=== PATIENT | male | born 2000 | race Caucasian/White ===

== ENCOUNTER 2021-02-06 11:03 | Emergency (ER) | payer OTHER, SELFPAY ==
[2021-02-06 11:05] VITALS: BP 132/55; PULSE 70; RESP 20; TEMP 36.9; O2SAT 99; BMI 34.5
--- NOTE | 2021-02-06 12:15 | HMH.EDUTC ---
[facility] [place] Clinical Impression: Allergic rhinitis Qualifiers: Allergic rhinitis trigger: unspecified Allergic rhinitis seasonality: unspecified Qualified Code(s): J30.9 - Allergic rhinitis, unspecified Disposition: Home, Self-Care Condition on Discharge: Good Instructions: Allergic Rhinitis, DI for Allergic Rhinitis Additional Instructions: Continue taking your allergy medication Make sure that you are drinking plenty of water Use flonase as prescribed Return if needed Straight to ER if any life threatening symptoms Prescriptions: guaiFENesin [Mucinex 600mg tablet] 1 - 2 tab PO Q12HP PRN #20 tab.er.12h PRN Reason: Congestion Transmission Status: Pending to [facility] # Fluticasone Propionate [Flonase 50mcg nasal spray 16gm] 1 - 2 spr NS DAILY #1 bottle Transmission Status: Pending to [facility] # Referrals: Lorena Gu MD [Primary Care Provider] - As needed Forms: Work/School Release Time of Disposition: 12:21 Medical Decision Making - Luis Fernando Inquiry Pt receiving controlled substance: No Luis Fernando was queried for this patient: No Vital Signs: 02/06/21 11:05 Temperature 98.5 F Temperature Source Temporal Artery Scan Pulse Rate [Left Brachial] 70 Respiratory Rate 20 Blood Pressure [Left Arm] 132/55 L Blood Pressure Mean [Left Arm] 80 Blood Pressure Source [Left Arm] Automatic Cuff Blood Pressure Position [Left Arm] Sitting 02 Sat by Pulse Oximetry 99 Oxygen Delivery Method Room Air [facility] [place] - General Stated complaint: allergies Time Seen by Provider: 02/06/21 12:15 Mode of Arrival: Ambulatory Source of Information: Patient Limitations: No Limitations Description of Symptoms (Recalled from Triage Doc. by RN): PATIENT C/O CONGESTION, RUNNY NOSE AND ALLERGY SYMPTOMS. RECENTLY HAS BEEN WORKING IN [employer], SYMPTOMS STARTED AFTER HEENT Symptoms (Recalled from RN notes): Yes Resp Symptoms (Recalled from RN notes): No Skin Symptoms (Recalled from RN notes): No MS Symptoms (Recalled from RN notes): No Functional Status (Recalled from RN notes): WNL - History of Present Illness Provider Complaint: Patient states that he has bad allergies States that he has been working in the [employer] State that his allergies has been acting up and has his nose congested States that he wasnt sure what to do to help open up his congestion Denies fever, denies chills denies exposure to COVID - Related Data Previous Rx's Medication Instructions Recorded Fluticasone Propionate [Flonase 1 - 2 spr NS DAILY #1 bottle 02/06/21 50mcg nasal spray 16gm] guaiFENesin [Mucinex 600mg tablet] 1 - 2 tab PO Q12HP PRN #20 02/06/21 tab.er.12h Allergies Allergy/AdvReac Type Severity Reaction Status Date / Time brompheniramine Allergy Verified 07/06/19 09:42 [From Bromfed] phenylephrine [From Bromfed] Allergy Verified 07/06/19 09:42 pseudoephedrine Allergy Verified 07/06/19 09:42 [From Bromfed] - Worker's Comp Is this a Worker's Comp case?: No [facility] History - Hepatitis A Screen Drug use history?: No High risk sexual behaviors?: No History of sexually transmitted infection?: No Currently employed?: No Childcare worker?: No Do you have indoor plumbing?: Yes Do you have electricity?: Yes Attestation statement:: This patient has been screened for Hepatitis A risk factors. I have reviewed the patient's past medical history: Yes - Social History Alcohol Intake: never Occupational Status: other ROS Obtained: Yes All systems reviewed & no additional complaints, Yes Systems reviewed as appropriate & no additional complaints - Constitutional Constitutional: Reports system reviewed and no additional complaints, except as docu, Denies body ache, Denies chills, Denies fever(s) - Eyes Eyes: Reports system reviewed and no additional complaints, except as docu - ENT Ears, Nose, Mouth, and Throat: Reports system reviewed and no additional complaints, except as d
[2021-02-06 12:24] VITALS: BP 132/55; PULSE 70; RESP 20; TEMP 36.9; O2SAT 99
== END 2021-02-06 12:29 | disposition home or self-care (01) ==
PROVIDERS: Emergency Provider Nurse Practitioner; PCP Pediatrics
DX: J30.9 Allergic rhinitis, unspecified (principal)
CPT/HCPCS: 99202; G0463

== ENCOUNTER 2024-10-08 07:56 | Emergency (ER) | payer BC, SELFPAY ==
[2024-10-08 08:06] VITALS: BP 134/61; PULSE 70; RESP 18; TEMP 36.8; O2SAT 98; BMI 31.4
[2024-10-08 08:31] VITALS: BP 116/66; PULSE 92; O2SAT 97
[2024-10-08 09:00] VITALS: BP 113/64; PULSE 64; O2SAT 96
--- NOTE | 2024-10-08 09:15 | PC.NURSE ---
DR CAI AT BEDSIDE
[2024-10-08] MEDS: TET/DIPHTH/PERT-ADULT 0.5ML SYRINGE 0.5 ML IM (09:19)
--- NOTE | 2024-10-08 09:27 | PC.NURSE ---
needle stick site cleaned with betadine
--- NOTE | 2024-10-08 09:28 | PC.NURSE ---
called poison control at this time
[2024-10-08 10:09] VITALS: BP 121/75; PULSE 66; RESP 18; TEMP 36.8; O2SAT 98
--- NOTE | 2024-10-08 11:04 | HMH.EDGENADL ---
Discharge Plan Disposition Patient Disposition: Home, Self-Care Condition: Good Prescriptions Prescriptions: New sulfamethoxazole-trimethoprim [Bactrim DS] 800-160 mg tablet 1 tab PO BID 7 Days Qty: 14 0RF No Action fluticasone propionate 120 SPR/BOT bottle 1 - 2 spr NS DAILY Qty: 1 0RF Rx Instructions: each nostril daily guaifenesin 600 MG tablet extended release 12hr 1 - 2 tab PO Q12HP PRN (Reason: Congestion) Qty: 20 0RF Referrals Follow up/Referrals: Provider,Referral, [Primary Care Provider] - See instructions Activity Restrictions/Add. 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 Your tetanus shot was updated today. Keep an eye on your wound. Make sure you do not develop any rashes or skin changes around the area. Follow-up closely with primary care provider for wound recheck. Return to the emergency department for new or worsening symptoms. Clinical Impressions Clinical Impression: Needle stick injury Stand Alone Forms Stand Alone Forms: Work/School Release Instructions Patient Instructions: DI for Puncture Wound Print Language Print Language: Spanish Discharge ED Provider: Tara Mendoza General Adult HPI General Chief complaint: Wound/Laceration Stated complaint: [place] [address] by Vet. needle R calf Time Seen by Provider: 10/08/24 09:12 Mode of Arrival: Ambulatory Source of Information: Patient Description of Symptoms (Recalled from ER Triage Doc. by RN): pt reports he was vaccinating cattle this morning and missed the cow and stabbed himself with the needle in the right lower calf . Pt reports the medication in the syringe was Draxxin. pt reports he is more concerned about his tetanus vaccine. History of Present Illness HPI narrative: This patient is a 23-year-old male who denies significant past medical history presenting to the emergency department for evaluation with concern for an needlestick injury. Patient was vaccinating his cattle this morning and injected Draxxin (tulathromycin/ketoprofen) when he accidentally injected his own R lower leg instead of the cow. This happened just prior to arrival. He did wash it out prior to arrival. He states that otherwise he is doing fine, denies any concerns or complaints. Denies any known allergies, not sure when his last tetanus shot was. He was well prior to this Related Data Previous Rx's ?Medication ?Instructions ?Recorded fluticasone propionate 50 1 - 2 spr NS DAILY ##1 02/06/21 mcg/actuation nasal spray,suspension guaifenesin 600 mg tablet, 1 - 2 tab PO Q12HP PRN Congestion 02/06/21 extended release 12 hr ##20 sulfamethoxazole 800 1 tab PO BID 7 days #14 tabs 10/08/24 mg-trimethoprim 160 mg tablet (Bactrim DS) Allergies Allergy/AdvReac Type Severity Reaction Status Date / Time brompheniramine (From Allergy Verified 07/06/19 09:42 Bromfed) phenylephrine (From Bromfed) Allergy Verified 07/06/19 09:42 pseudoephedrine (From Allergy Verified 07/06/19 09:42 Bromfed) [facility] Disclaimer: The information contained in this section may have been updated after the patient was seen, as this information can be updated by other users. Social History Smoking Status: Never smoker alcohol intake: never current occupational status: other Travel in the last 8 weeks: None Have you lived/traveled outside US in past 30 days?: No Contact w/someone who lives/traveled outside US past 30 days?: No Exposure to someone with infectious disease in past 14 days?: No Do you have a fever (greater than 100.4 F or 38 C)?: No Have you tested positive for COVID-19: No Exposed to someone with COVID-19 in past 14 days?: No Do you have a sore throat?: No Do you have a cough?: No Do you have any weakness?: No Do you have any diarrhea?: No Are you experiencing any unusual bleeding?: No Do you have any muscle aches/pain?: No Do you have any abdominal pain?: No Are you experiencing loss of taste or smell?: No ROS Obtained: Yes All systems reviewed & no additional complaints except as documented Physical Exam General General appearance: alert and in no apparent distress Head Head exam: atraumatic and normocephalic Eye Eye exam: Present normal appearance, PERRL and EOMI ENT ENT exam: Present normal exam, normal oropharynx, mucous membranes moist and normal external ear exam Neck Neck exam: Present normal inspection, full ROM and trachea midline; Absent tenderness Chest Chest inspection: Present normal inspection and symmetric chest wall rise; Absent tenderness Respiratory Respiratory exam: Present normal lung sounds bilaterally; Absent respiratory distress, wheezes, stridor or accessory muscle use Cardiovascular Cardiovascular exam: Present regular rate and normal rhythm Abdominal Exam Abdominal exam: Present soft; Absent distention, tenderness or guarding Extremities Exam Extremities exam: Present normal inspection, full ROM and normal capillary refill; Absent tenderness or edema Back Exam Back exam: Present normal inspection and full ROM; Absent tenderness Back 1 view image: 1. small puncture wound, no rash or irritation Neurological Exam Neurological exam: Present alert, oriented X3, CN II-XII intact and normal gait; Absent motor sensory deficit Psychiatric Psychiatric exam: Present normal affect and normal mood Skin Skin exam: Present warm and dry Medical Decision Making Medical Records Medical records reviewed: Yes I reviewed the patient's medical records. Screening: Per USPSTF and CDC recommendations, given the prevalence of disease in our region, it is our hospital?s policy to screen for HIV and viral Hepatitis for all patients aged 18 and over and those with ongoing risk factors. Luis Fernando Inquiry Pt receiving controlled substance: No Vital Signs: 10/08/24 08:06 10/08/24 08:31 10/08/24 09:00 Temperature 98.3 F Temperature Source Oral Pulse Rate 92 H 64 Pulse Rate [Right] 70 Respiratory Rate 18 Blood Pressure 116/66 113/64 Blood Pressure [Right Arm] 134/61 Blood Pressure Mean [Right Arm] 85 Blood Pressure Source Blood Pressure Source [Right Arm] Automatic Cuff Blood Pressure Position 02 Sat by Pulse Oximetry 98 97 96 Oxygen Delivery Method Room Air Room Air 10/08/24 10:09 Temperature 98.3 F Temperature Source Oral Pulse Rate 66 Pulse Rate [Right] Respiratory Rate 18 Blood Pressure 121/75 Blood Pressure [Right Arm] Blood Pressure Mean [Right Arm] Blood Pressure Source Automatic Cuff Blood Pressure Source [Right Arm] Blood Pressure Position Supine 02 Sat by Pulse Oximetry Oxygen Delivery Method Room Air Lab Data Lab results reviewed: Yes I reviewed the patient's lab results. Orders (Tests/Meds): ED MEDICATIONS Discontinued Medications Generic Name Dose Route Start Last Admin Trade Name Freq PRN Reason Stop Dose Admin Tetanus/Reduced Diphtheria/Acell Pertussis 0.5 ml 10/08/24 09:13 10/08/24 09:19 Tet/Diphth/Pert-Adult 0.5ml Syringe IM 10/08/24 09:14 0.5 ml .ONCE ONE Administration Medical Decision Narrative: In summary, this patient is a 23-year-old male presenting to the Emergency Department for evaluation of needlestick injury/cattle vaccination injection of Draxxin into his leg. Differential diagnoses considered include but are not limited to needlestick injury, blood-borne pathogen exposure. Ruling out the most morbid conditions drove assessment. I had an interactive discussion with poison control who recommended Tdap, wound care, and discharge home with instructions to monitor for any sort of rashes or skin issues. Wound was irrigated with Betadine. Tdap booster was administered. I elected to send patient home with prophylactic Bactrim given dirty needle/skin exposure puncture wound. Patient was given instructions for wound care, strict return precautions, and he was discharged after all questions were answered with plan for close follow-up with PCP. Critical Care Critical Care Time Critical Care Time: No
== END 2024-10-08 10:03 | disposition home or self-care (01) ==
PROVIDERS: Emergency Provider Emergency Medicine
DX: S89.91XA Unspecified injury of right lower leg, initial encounter (principal); W46.0XXA Contact with hypodermic needle, initial encounter; Z23 Encounter for immunization
CPT/HCPCS: 90471; 90715; 99283

== ENCOUNTER 2025-04-19 22:52 | Emergency (ER) | payer BC, SELFPAY ==
[2025-04-19 22:59] VITALS: BP 154/80; PULSE 109; RESP 16; O2SAT 97; BMI 32.7
[2025-04-19 23:00] VITALS: BP 154/80; PULSE 103; O2SAT 98
[2025-04-19 23:06] VITALS: BP 154/80; PULSE 109; RESP 16; O2SAT 100
--- OUTSIDE RECORDS SUMMARY | 2025-04-19 23:08 | XMS_ITS | Clinical Summary ---
[facility] Address [address] [place] [address] Care Team Providers Care Supervisor Partial Denture Department Name Role Phone Rommel Brown MD Primary Care Provider Unavailab le Allergies Active Allergy Reactions Criticality Noted Date Comments Fibebzfwg-Etjutibl-Ve Rash Low 05/05/2016 Prednisone Irritability Low 03/30/2017 Medications No known medications Active Problems No known active problems Social History Tobacco Use Types Packs/Day Years Used Date Smoking Tobacco: Never Alcohol Use Standard Drinks/Week Comments No 0 (1 standard drink = 0.6 oz pur e alcohol) AUDIT-C Answer Date Recorded Frequency of Alcohol Consumption Never 11/17/2018 Average Number of Drinks Not on file 019 Frequency of Binge Drinking Not on file 11/01 Abuse Screen Answer Date Recorded Unsafe at Home or Work/School Not on file Feels Threatened by Someone? Not on file 03/2023 Does Anyone Keep You from Co ntacting Others or Doint Things Outside the Home? Not on file 04/11/2023 Physical Sign of Abuse Present Not on file 1 Housing Stability Answer Date Recorded Current Living Arrangements Not on file 03/2023 Potentially Unsafe Housing Conditions Not on meagan e 04/11/2023 Family and Community Support Answer Saul e Recorded Help with Day-to-Day Activities Not on file 04/11/2023 Lonely or Isolated Not on file 04/11/2023 Employment Answer Date Recorded Do you want help finding or keeping work or a wily b? Not on file 04/11/2023 Disabilities Answer Date Recorded Concentrating, Remembering, or Making Decisions Difficulty Not on file 04/11/2023 Doing Errands Independently Difficulty Not on fi le 04/11/2023 Education Answer Date Recorded Help with school or training? Not on file Preferred Language Not on file 04/11/2023 Sex and Gender Information Value Date Recorded Sex Assigned at Not on file Legal Sex Male 11:53 AM EDT Gender Identity Not on file Sexual Orientation Not on file Last Filed Vital Signs Vital Sign Reading Time Taken Comments Blood Pressure - - Pulse 79 03/25/2019 11:19 AM EDT Temperature 36.2 C (97.1 F) 03/25/2019 11:19 AM EDT Respiratory Rate 12 03/25/2019 11:19 AM EDT Oxygen Saturation 98% 03/25/2019 11:19 AM EDT Inhaled Oxygen Concentration - - Weight 126 kg (278 lb) 03/25/2019 11:19 AM EDT Height 193 cm (6' 4 ) 03/25/2019 11:19 AM EDT Body Mass Index 33.84 03/25/2019 11:19 AM EDT Plan of Treatment Health Maintenance Due Date Last Done Comments ANNUAL PHYSICAL 09/30/2016 HEPATITIS C SCREENING 09/30/2016 MENINGOCOCCAL B VACCINE (1 o f 2 - Standard) 2017 TDAP/TD VACCINES (1 - Tdap) 2020 INFLUENZA VACCINE 02/01/2025 Pneumococcal Vaccine 0-49 Aged Out No longer eligible based on patient's age to complete this topic Insurance [id number] PPO Care Teams Supervisor Partial Denture Department Relationship Specialty Start Date End Date Rommel Brown MD PCP - General 12/02/15
--- NOTE | 2025-04-19 23:10 | XR_ITS ---
PROCEDURE INFORMATION: Exam: XR Right Ankle Exam date and time: 04/19/2025 11:27 PM Age: 24 years old Clinical indication: Injury or trauma; Fall; Sprain or strain; Ankle; Right; Additional info: Pop, pain laterally TECHNIQUE: Imaging protocol: Radiologic exam of the right ankle. Views: 3 or more views. Total images: 3 COMPARISON: No relevant prior studies available. FINDINGS: Bones/joints: No acute fracture, joint dislocation, or joint effusion. The ankle mortise is maintained. Unremarkable joint spaces. No concerning bone lesions. Soft tissues: Unremarkable soft tissues. IMPRESSION: Negative right ankle.
--- NOTE | 2025-04-19 23:13 | HMH.EDGENADL ---
Discharge Plan Disposition Patient Disposition: Home, Self-Care Condition: Good Referrals Follow up/Referrals: Provider,Referral, [Primary Care Provider, Medical] - See instructions Activity Restrictions/Add. Instructions Additional Instructions/Restrictions: You were evaluated in the ER and are believed to be appropriate for discharge at this time. Wear the brace on the ankle for support when walking for the next few days. If you no longer have pain then you do not have to wear the brace. Make sure you remove the brace multiple times a day and do range of motion exercises. I recommend that you think about tracing the capital letters of the alphabet with your big toe. This helps to move the ankle in all planes of motion and strengthen it. Take Tylenol and ibuprofen at home if needed for pain, do not exceed the recommended dose on the bottle. Drink water and eat a small snack each time you take these medications to avoid side effects. Elevate the ankle if needed to help with swelling. You can use ice up to 20 minutes at a time, do not apply directly to the skin. Follow-up with your primary care doctor for reevaluation in the coming week. Return to the ER with any new, worsening, or otherwise concerning symptoms. Clinical Impressions Clinical Impression: Ankle sprain and strain Instructions Patient Instructions: Sprain Print Language Print Language: Macedonian Discharge ED Provider: Lilly Casey General Adult HPI General Chief complaint: Extremity Injury, Lower Stated complaint: 2052, inj right ankle Time Seen by Provider: 04/19/25 23:09 Mode of Arrival: Ambulatory Source of Information: Patient Description of Symptoms (Recalled from ER Triage Doc. by RN): PT presents to the ED for evaluation of R ankle. PT stated 2 hours prior to arrival he was playing basketball and just felt a couple pops, denies twisting his ankle or falling. PT took 400mg of ibuprofen. lateral side of ankle has edema noted, no discoloration of ankle noted. History of Present Illness HPI narrative: 24-year-old male presents to the ER for right ankle pain. Patient reports that started approximately 2 to 3 hours prior to arrival. He was playing basketball and states he rolled his ankle. He demonstrates it rolling towards the outside. He denies actually twisting the ankle or any fall. He states he took 400 mg of ibuprofen prior to arrival. He is complaining of pain at the lateral aspect of the right ankle. He states he has walked on it since the injury but wants to make sure that there is nothing broken. No other complaints or concerns Related Data Allergies Allergy/AdvReac Type Severity Reaction Status Date / Time brompheniramine (From Allergy Rash Verified 04/19/25 23:04 Bromfed) phenylephrine (From Bromfed) Allergy Rash Verified 04/19/25 23:04 pseudoephedrine (From Allergy Rash Verified 04/19/25 23:04 Bromfed) [facility] Disclaimer: The information contained in this section may have been updated after the patient was seen, as this information can be updated by other users. Social History Smoking Status: Never smoker alcohol intake: never current occupational status: other Travel in the last 8 weeks?: None ROS Obtained: Yes Systems reviewed as appropriate & no additional complaints except as documented Per HPI Physical Exam General General appearance: alert and in no apparent distress Head Head exam: atraumatic and normocephalic Eye Eye exam: Present PERRL and EOMI ENT ENT exam: Present mucous membranes moist Neck Neck exam: Present normal inspection and full ROM Chest Chest inspection: Present symmetric chest wall rise Respiratory Respiratory exam: Absent respiratory distress or stridor Cardiovascular Cardiovascular exam: Present regular rate and normal rhythm Extremities Exam Extremities exam: Present full ROM, tenderness (Mild right lateral malleolus), normal capillary refill, joint swelling (Very slight swelling over the lateral aspect of the right ankle) and other (Neurovascularly intact, no other areas of pain or tenderness); Absent edema Neurological Exam Neurological exam: Present alert and oriented X3; Absent motor sensory deficit Psychiatric Psychiatric exam: Present normal affect and normal mood Skin Skin exam: Present warm and dry Medical Decision Making Medical Records Medical records reviewed: Yes I reviewed the patient's medical records. Screening: Per USPSTF and CDC recommendations, given the prevalence of disease in our region, it is our hospital?s policy to screen for HIV and viral Hepatitis for all patients aged 18 and over and those with ongoing risk factors. Luis Fernando Inquiry Pt receiving controlled substance: No Vital Signs: 04/19/25 22:59 04/19/25 23:00 04/19/25 23:06 Pulse Rate 103 H 109 H Pulse Rate [Right] 109 H Respiratory Rate 16 16 Blood Pressure 154/80 H 154/80 H Blood Pressure [Right Arm] 154/80 H Blood Pressure Mean [Right Arm] 104 02 Sat by Pulse Oximetry 97 98 100 Oxygen Delivery Method Room Air Room Air Room Air 04/19/25 23:15 04/19/25 23:30 Pulse Rate 92 H 94 H Pulse Rate [Right] Respiratory Rate Blood Pressure 140/81 153/84 H Blood Pressure [Right Arm] Blood Pressure Mean [Right Arm] 02 Sat by Pulse Oximetry 95 96 Oxygen Delivery Method Orders (Tests/Meds): ORDERS Category Date Time Status Ankle XR -Right minimum 3 Views [XR ankle RT min 3V] Exams 04/19/25 23:10 Completed Stat Medical Decision Narrative: In summary, this 24-year-old male presents to the emergency department today with right ankle pain after basketball injury. On initial evaluation patient is hemodynamically stable, afebrile, overall well-appearing, physical exam notable for mild tenderness to palpation over the right lateral malleolus with only slight associated swelling but no deformity or crepitus, no bruising, Achilles intact, no other areas of tenderness or pain appreciated, neurovascularly intact throughout. Differential diagnosis includes but is not limited to sprain which I believe is most likely also consider the possibility of osseous injury such as fracture, dislocation, avulsion fracture, but I have lower suspicion for these. Based on these concerns, I ordered x-ray right ankle. X-ray personally interpreted demonstrate no acute osseous injury, see radiology read for final interpretation. Patient was placed in a supportive brace and instructed on use of this brace as well as range of motion exercises to help promote healing. He stated he will not use crutches even if we give them to him so they were not provided. Patient was given instructions on symptomatic management, follow up instructions, and return precautions for the emergency department. Patient indicated understanding and was discharged in stable condition. Critical Care Critical Care Time Critical Care Time: No
[2025-04-19 23:15] VITALS: BP 140/81; PULSE 92; O2SAT 95
[2025-04-19 23:30] VITALS: BP 153/84; PULSE 94; O2SAT 96
[2025-04-20 00:14] VITALS: BP 147/81; PULSE 96; RESP 16; TEMP 37; O2SAT 100
--- NOTE | 2025-04-20 00:17 | PC.NURSE ---
PT provided with gel ankle brace. Education given to PT. PT had verbal understanding.
== END 2025-04-20 00:17 | disposition home or self-care (01) ==
PROVIDERS: Emergency Provider Emergency Medicine
DX: S93.401A Sprain of unspecified ligament of right ankle, initial encounter (principal); S96.911A Strain of unspecified muscle and tendon at ankle and foot level, right foot, initial encounter; X50.1XXA Overexertion from prolonged static or awkward postures, initial encounter; Y93.67 Activity, basketball
CPT/HCPCS: 73610; 99283; 99284